=== PATIENT | female | born 1980 | race Caucasian/White ===

== ENCOUNTER 2016-09-07 11:00 | Outpatient (CLI) | payer OTHER ==
--- NOTE | 2016-09-07 12:43 | DIAGNOSTIC IMAGING REPORT ---
PROCEDURE: US OB DETAILED ANATOMIC INDICATION: ANATOMY TECHNIQUE: Alicea scale, color, and spectral Doppler images of the second trimester gravid uterus were obtained. COMPARISON: None. FINDINGS: A single living intrauterine is in vertex presentation. There is regular cardiac activity at a rate of 155 beats per minute. The placenta is anterior and away from the internal cervical os. The cervix is closed measuring approximately 5.3 cm in length. The amniotic fluid volume is subjectively normal. Biparietal diameter 4.9 cm at 20 weeks and 6-day Head circumference 18.1 cm at 20 weeks and 4 days Abdominal circumference 15.8 cm at 21 weeks and 0-day Femur length 3.4 cm at 20 weeks and 6 days Head to abdominal circumference ratio and femur length to abdominal circumference ratios are normal. Estimated weight 20 weeks and 6 days, JORY 01/20/2016 Composite gestational age 382 g There was visualization of a number of normal structures including the intracranial contents, facial features, nuchal region, spine, four-chamber heart and outflow tracts to the extent that could be visualized, diaphragm, fluid-filled stomach, kidneys, abdomen, urinary bladder, upper and lower extremities, and genitals. A three-vessel umbilical cord, normal and placental cord insertion sites were seen. IMPRESSION: 1. Single living intrauterine with a composite gestational age of 20 weeks and 6 days, JORY 01/20/2016 2. Symmetric and normal anatomy.
== END 2016-09-07 23:00 ==
LOC: US SRH 11:00
DX: Z34.82 Encounter for supervision of other normal pregnancy, second trimester (principal); Z3A.20 20 weeks gestation of pregnancy

== ENCOUNTER 2017-01-20 14:48 | Outpatient (CLI) | payer OTHER ==
--- NOTE | 2017-01-20 16:13 | DIAGNOSTIC IMAGING REPORT ---
PROCEDURE: US OB LIMITED INDICATION: CHECK POSITIONING TECHNIQUE: Alicea scale and color Doppler sonographic images obtained of the gravid uterus. COMPARISON: OB ultrasound 09/07/2016. FINDINGS: Single intrauterine with vertex presentation and anterior fundal placenta without previa. EMA 31 cm. Heart rate 127 bpm. Normal cord ratio 2.3. Stomach, kidneys and bladder are grossly normal. IMPRESSION: 1. Single live intrauterine , vertex 2. EMA 31 cm, greater than 98th percentile
== END 2017-01-20 23:00 | disposition home or self-care (01) ==
LOC: US SRH 14:48
DX: O32.1XX0 Maternal care for breech presentation, not applicable or unspecified (principal); Z3A.39 39 weeks gestation of pregnancy

== ENCOUNTER 2017-02-01 14:09 | Outpatient (CLI) | payer OTHER ==
--- NOTE | 2017-02-01 17:05 | DIAGNOSTIC IMAGING REPORT ---
PROCEDURE: US BIOPHYSICAL PROFILE (OB) INDICATION: 31 CC AMNIOTIC FLUID LAST WEEK - 41 WEEKS TECHNIQUE: High-resolution transabdominal scans during 30-minute observation time interval. COMPARISON: None. FINDINGS: Viable intrauterine in vertex position. Placenta is anterior fundal and there is no evidence of previa. Normal cervix length 4.3 cm ). Amniotic fluid index 32.5 cm, previously 31 cm, greater than 97.5 percentile). MOVEMENTS: 2 (Criteria - 3 discrete body/limb movements during 30-minute time interval.) TONE: 2 (Criteria - 1 episode of active extension and flexion of the limbs or trunk during 30-minute time interval. Opening and closing of the hand considered normal tone.) BREATHIN (Criteria - 1 episode > 30 seconds during 30-minute time interval. Hiccoughs count as breathing activity.) AMNIOTIC FLUID INDEX: 2 (Criteria - a single pocket of 2 cm fluid in vertical axis considered adequate.) IMPRESSION: 1. Biophysical profile 03/07 2. EMA 32.5 cm (previously 31 cm).
== END 2017-02-01 19:30 | disposition home or self-care (01) ==
LOC: NST SRH 14:09 → OB SRH 14:11 → NST SRH 19:30
DX: Z34.93 Encounter for supervision of normal pregnancy, unspecified, third trimester (principal)